=== PATIENT | female | born 1940 | race Caucasian/White ===

== ENCOUNTER 2020-05-26 16:32 | Emergency (ER) | payer OTHER ==
[~2020-05-26] VITALS: Ht 152.4 cm; Wt 40.8 kg
[2020-05-26] MEDS ORDERED: ECOTRIN81 MG PO (16:47)
[2020-05-26] MEDS ORDERED: ENALAPRIL MALEAT5 MG PO (16:48)
[2020-05-26] MEDS ORDERED: LEVOTHYROXINE25 MCG PO (16:48)
[2020-05-26] MEDS ORDERED: SIMVASTATIN5 MG PO (16:48)
[2020-05-26] MEDS ORDERED: CARVEDILOL6.25 MG (16:49)
[2020-05-26] MEDS ORDERED: NEURONTIN300 MG PO (16:49)
[2020-05-26] MEDS ORDERED: ORTHO DF 3,7751 EACH PO (16:50)
== END 2020-05-27 08:19 | disposition home or self-care (01) ==
LOC: ER 16:32
DX: R19.5 Other fecal abnormalities (principal)